=== PATIENT | female | born 1975 | race African-American/Black ===

== ENCOUNTER 2023-11-01 00:25 | Emergency (ER) | payer MEDICAID ==
[~2023-11-01] VITALS: Ht 149.9 cm; Wt 50.3 kg
[2023-11-01 00:39] VITALS: TEMP 97.7
[2023-11-01] MEDS ORDERED: NITROGLYCERIN 0.4 MG/TAB BOTTLE ONE (00:56)
[2023-11-01] MEDS ORDERED: NITROGLYCERIN 0.4 MG/TAB BOTTLE SL ONE ×2 (01:00→04:30)
[2023-11-01 01:50] LABS: BASOPHILS % (AUTO) 0.7 % (0.0-2.0); EOSINOPHILS # (AUTO) 0.1 K/uL (0.0-0.7); EOSINOPHILS % (AUTO) 1.8 % (0.0-6.0); HEMATOCRIT 33 % (33-45); LYMPHOCYTES # (AUTO) 1.1 K/uL (0.8-4.8); LYMPHOCYTES % (AUTO) 16.9 % (20.0-44.0); MEAN CORPUSCULAR HEMOGLOBIN 32 PG (26.0-33.0); MEAN CORPUSCULAR HGB CONC 33 g/dl (31.0-36.0); MEAN CORPUSCULAR VOLUME 97 fL (82-100); MONOCYTES # (AUTO) 0.3 K/uL (0.1-1.30); MONOCYTES % (AUTO) 4.2 % (2.0-12.0); NEUTROPHILS # (AUTO) 5.2 K/uL (1.8-8.9); NEUTROPHILS % (AUTO) 76.4 % (43.0-81.0); PLATELET COUNT (AUTO) 222 K/uL (150-450); RED CELL DISTRIBUTION WIDTH 18.8 % (11.5-15.0); WHITE BLOOD COUNT (AUTO) 6.8 K/uL (4.3-11.0)
[2023-11-01 01:53] LABS: CALCIUM, SERUM 9.5 mg/dL (8.5-10.1); INR 1.08 (0.91-1.10); PARTIAL THROMBOPLASTIN TIME 26.6 SEC (24.3-34.3); PROTHROMBIN TIME 11.4 SECS (9.2-11.1)
[2023-11-01 01:58] LABS: ALBUMIN 3.8 g/dL (3.4-5.0); BILIRUBIN,DIRECT 0.1 mg/dL (0.0-0.2); BILIRUBIN,TOTAL 0.4 mg/dL (0.2-1.0); TOTAL PROTEIN, SERUM 7.6 g/dL (6.4-8.2)
[2023-11-01 02:02] LABS: CREATININE 10.4 mg/dL (0.6-1.3)
[2023-11-01 04:20] VITALS: O2SAT 97
[2023-11-01 04:31] VITALS: BP 163/121
== END 2023-11-01 04:37 | disposition short-term general hospital (02) ==
LOC: ER 00:28
DX: R09.02 Hypoxemia (principal); I13.2 Hypertensive heart and chronic kidney disease with heart failure and with stage 5 chronic kidney disease, or end stage renal disease; N18.6 End stage renal disease; I50.9 Heart failure, unspecified; Z99.2 Dependence on renal dialysis; Z88.8 Allergy status to other drugs, medicaments and biological substances; Z20.822 Contact with and (suspected) exposure to COVID-19
CPT/HCPCS: 36415; 71045-TC; 80048-TC; 80076-TC; 85025-TC; 85730-TC

== ENCOUNTER 2024-03-27 23:22 | Inpatient (IN) | payer MEDICAID ==
[~2024-03-27] VITALS: Ht 144.8 cm; Wt 46.3 kg
[2024-03-27] MEDS ORDERED: NTG 50 MG/D5W250 ML BOTTL 250 ML IV ONE (23:46)
[2024-03-27 23:56] LABS: BASOPHILS # (AUTO) 0.1 K/uL (0.0-0.2); BASOPHILS % (AUTO) 1.2 % (0.0-2.0); EOSINOPHILS # (AUTO) 0.1 K/uL (0.0-0.7); EOSINOPHILS % (AUTO) 2.2 % (0.0-6.0); HEMATOCRIT 35 % (33-45); HEMOGLOBIN 11.4 g/dL (11.5-14.8); LYMPHOCYTES # (AUTO) 2.7 K/uL (0.8-4.8); LYMPHOCYTES % (AUTO) 39.6 % (20.0-44.0); MEAN CORPUSCULAR HEMOGLOBIN 32 PG (26.0-33.0); MEAN CORPUSCULAR HGB CONC 33 g/dl (31.0-36.0); MEAN CORPUSCULAR VOLUME 100 fL (82-100); MONOCYTES # (AUTO) 0.4 K/uL (0.1-1.30); MONOCYTES % (AUTO) 5.6 % (2.0-12.0); NEUTROPHILS # (AUTO) 3.5 K/uL (1.8-8.9); NEUTROPHILS % (AUTO) 51.4 % (43.0-81.0); PLATELET COUNT (AUTO) 140 K/uL (150-450); RED CELL DISTRIBUTION WIDTH 17.2 % (11.5-15.0); WHITE BLOOD COUNT (AUTO) 6.8 K/uL (4.3-11.0)
[2024-03-27] MEDS: NTG 50 MG/D5W250 ML BOTTL 250 ML IV ONE (23:57)
[2024-03-28] VITALS (38 sets, daily range): BP systolic 119–186; BP diastolic 61–121; TEMP 97.3–98; O2SAT 92–100
[2024-03-28 00:05] LABS: CALCIUM, SERUM 10.4 mg/dL (8.5-10.1); CARBON DIOXIDE 26 mmol/L (21-32); CHLORIDE 95 mmol/L (98-107); GLUCOSE 116 mg/dL (74-106); POTASSIUM 4.4 mmol/L (3.5-5.1); SODIUM SERUM 137 mmol/L (136-145); UREA NITROGEN, BLOOD 64 mg/dL (7-18)
[2024-03-28 00:10] LABS: INR 1.05 (0.91-1.10); PARTIAL THROMBOPLASTIN TIME 27.2 SEC (24.3-34.3); PROTHROMBIN TIME 11.1 SECS (9.2-11.1)
[2024-03-28 00:17] LABS: ALANINE AMINOTRANSFERASE 55 U/L (12-78); ALBUMIN 4.1 g/dL (3.4-5.0); ALKALINE PHOSPHATASE 82 U/L (46-116); ASPARTATE AMINOTRANSFERASE 73 U/L (15-37); BILIRUBIN,DIRECT 0.2 mg/dL (0.0-0.2); BILIRUBIN,TOTAL 0.5 mg/dL (0.2-1.0); TOTAL PROTEIN, SERUM 8.1 g/dL (6.4-8.2)
[2024-03-28 00:23] LABS: CREATININE 9.8 mg/dL (0.6-1.3); NT-PRO BNP > 25000 pg/mL (0-125)
[2024-03-28] MEDS ORDERED: ONDANSETRON HCL/PF 4 MG/2 ML VIAL IVP PRN (01:00)
[2024-03-28] MEDS ORDERED: MAG HYDROX/AL HYDROX/SIMETH 30 ML UDC PO PRN (01:00)
[2024-03-28] MEDS ORDERED: MAGNESIUM HYDROXIDE 30 ML UDC PO PRN (01:00)
[2024-03-28 04:56] LABS: BASOPHILS % (AUTO) 0.7 % (0.0-2.0); EOSINOPHILS % (AUTO) 0.3 % (0.0-6.0); HEMATOCRIT 30 % (33-45); HEMOGLOBIN 10.2 g/dL (11.5-14.8); LYMPHOCYTES # (AUTO) 0.8 K/uL (0.8-4.8); LYMPHOCYTES % (AUTO) 13.8 % (20.0-44.0); MEAN CORPUSCULAR HEMOGLOBIN 33 PG (26.0-33.0); MEAN CORPUSCULAR HGB CONC 34 g/dl (31.0-36.0); MEAN CORPUSCULAR VOLUME 99 fL (82-100); MONOCYTES # (AUTO) 0.4 K/uL (0.1-1.30); MONOCYTES % (AUTO) 6.8 % (2.0-12.0); NEUTROPHILS # (AUTO) 4.8 K/uL (1.8-8.9); NEUTROPHILS % (AUTO) 78.4 % (43.0-81.0); PLATELET COUNT (AUTO) 127 K/uL (150-450); RED BLOOD CELL COUNT(AUTO) 3.08 MIL/uL (4.0-5.2); RED CELL DISTRIBUTION WIDTH 17.1 % (11.5-15.0); WHITE BLOOD COUNT (AUTO) 6.1 K/uL (4.3-11.0)
[2024-03-28 05:14] LABS: CALCIUM, SERUM 9.8 mg/dL (8.5-10.1); MAGNESIUM 2.4 mg/dL (1.8-2.4); PHOSPHORUS 7.6 mg/dL (2.5-4.9)
[2024-03-28 05:24] LABS: CREATININE 10.3 mg/dL (0.6-1.3)
[2024-03-28] MEDS ORDERED: LOSA25TA27 PO ×2 (08:08→10:24)
[2024-03-28] MEDS ORDERED: BISO10TA PO (08:08)
[2024-03-28] MEDS ORDERED: LIDO30CR TP (08:08)
[2024-03-28] MEDS ORDERED: SODI650T PO (08:08)
[2024-03-28] MEDS ORDERED: FURO-144 PO (08:08)
[2024-03-28] MEDS ORDERED: CALC0.253 PO (08:08)
[2024-03-28] MEDS ORDERED: NIFE-35 PO (08:08)
[2024-03-28] MEDS ORDERED: SEVE800T8 PO (08:08)
[2024-03-28] MEDS ORDERED: NIFEDIPINE XL 60 MG TAB.ER.24 PO SCH (09:00)
[2024-03-28] MEDS: HEPARIN SODIUM, PORCINE 5000 UNITS/1 ML VIAL SQ SCH (09:36)
[2024-03-28] MEDS: ACETAMINOPHEN 325 MG TABLET PO PRN (10:22)
[2024-03-28] MEDS: NIFEdipine XL (30MG) 30 MG TAB PO SCH (10:32)
[2024-03-28] MEDS: LOSARTAN POTASSIUM 50 MG TABLET PO SCH (11:16)
[2024-03-28] MEDS: hydrALAZINE HCL IV 20 MG VIAL IV PRN (12:17)
[2024-03-29 15:09] LABS: HEPATITIS B SURFACE AB Non Reactive (.)
== END 2024-03-28 16:24 | disposition home or self-care (01) | DRG 425 ==
LOC: ER 23:25 → ICU 03-28 00:30
PROVIDERS: ADMIT Nurse Practitioner Acute Care; ATTEND Internal Medicine
PROC: 5A09357 Assistance with Respiratory Ventilation, Less than 24 Consecutive Hours, Continuous Positive Airway Pressure (ICD-10-PCS; principal; 2024-03-28)
PROC: 5A1D70Z Performance of Urinary Filtration, Intermittent, Less than 6 Hours Per Day (ICD-10-PCS; 2024-03-28)
DX: E87.79 Other fluid overload (principal); J96.01 Acute respiratory failure with hypoxia; I21.A1 Myocardial infarction type 2; D68.69 Other thrombophilia; I12.0 Hypertensive chronic kidney disease with stage 5 chronic kidney disease or end stage renal disease; N18.6 End stage renal disease; D63.1 Anemia in chronic kidney disease; I16.9 Hypertensive crisis, unspecified; E66.9 Obesity, unspecified; Z68.22 Body mass index [BMI] 22.0-22.9, adult; N25.0 Renal osteodystrophy; Z99.2 Dependence on renal dialysis; I12.9 Hypertensive chronic kidney disease with stage 1 through stage 4 chronic kidney disease, or unspecified chronic kidney disease
CPT/HCPCS: 36415; 71045-TC; 80048-TC; 80076-TC; 83735-TC; 83880; 84100-TC; 84484-TC; 85025-TC; 85730-TC; 86706; 87081-TC; 87340; 90935-TC; A4223; G0378; J0360; J1644; J3490

== ENCOUNTER 2024-07-26 22:11 | Inpatient (IN) | payer MEDICARE, MEDICAID ==
[~2024-07-26] VITALS: Ht 149.9 cm; Wt 42.2 kg
[~2024-07-26 22:11] MED LIST: BISO10TA PO; CALC0.253 PO; FURO-144 PO; LIDO30CR TP; LOSA25TA27 PO; NIFE-35 PO; SEVE800T8 PO; SODI650T PO
[2024-07-26] MEDS ORDERED: FUROSEMIDE 40 MG/4 ML VIAL ONE (22:24)
[2024-07-26] MEDS: FUROSEMIDE 40 MG/4 ML VIAL IV ONE (22:28)
[2024-07-26 22:31] LABS: BASOPHILS # (AUTO) 0.1 K/uL (0.0-0.2); BASOPHILS % (AUTO) 0.7 % (0.0-2.0); EOSINOPHILS # (AUTO) 0.1 K/uL (0.0-0.7); EOSINOPHILS % (AUTO) 1.5 % (0.0-6.0); HEMATOCRIT 34 % (33-45); HEMOGLOBIN 10.9 g/dL (11.5-14.8); LYMPHOCYTES # (AUTO) 4.1 K/uL (0.8-4.8); LYMPHOCYTES % (AUTO) 54.3 % (20.0-44.0); MEAN CORPUSCULAR HEMOGLOBIN 32 PG (26.0-33.0); MEAN CORPUSCULAR HGB CONC 32 g/dl (31.0-36.0); MEAN CORPUSCULAR VOLUME 98 fL (82-100); MONOCYTES # (AUTO) 0.5 K/uL (0.1-1.30); MONOCYTES % (AUTO) 6.2 % (2.0-12.0); NEUTROPHILS # (AUTO) 2.8 K/uL (1.8-8.9); NEUTROPHILS % (AUTO) 37.3 % (43.0-81.0); PLATELET COUNT (AUTO) 136 K/uL (150-450); RED BLOOD CELL COUNT(AUTO) 3.45 MIL/uL (4.0-5.2); RED CELL DISTRIBUTION WIDTH 17.3 % (11.5-15.0); WHITE BLOOD COUNT (AUTO) 7.6 K/uL (4.3-11.0)
[2024-07-26 22:47] LABS: CALCIUM, SERUM 9.6 mg/dL (8.5-10.1); CARBON DIOXIDE 27 mmol/L (21-32); CHLORIDE 103 mmol/L (98-107); GLUCOSE 144 mg/dL (74-106); POTASSIUM 5.4 mmol/L (3.5-5.1); SODIUM SERUM 143 mmol/L (136-145); UREA NITROGEN, BLOOD 58 mg/dL (7-18)
[2024-07-26 23:01] LABS: ALANINE AMINOTRANSFERASE 82 U/L (12-78); ALBUMIN 4.2 g/dL (3.4-5.0); ALKALINE PHOSPHATASE 99 U/L (46-116); ASPARTATE AMINOTRANSFERASE 93 U/L (15-37); BILIRUBIN,DIRECT 0.1 mg/dL (0.0-0.2); BILIRUBIN,TOTAL 0.4 mg/dL (0.2-1.0); NT-PRO BNP > 25000 pg/mL (0-125); TOTAL PROTEIN, SERUM 7.8 g/dL (6.4-8.2)
[2024-07-26 23:06] LABS: CREATININE 8.6 mg/dL (0.6-1.3)
[2024-07-26 23:25] LABS: ANISOCYTOSIS 1+; BASOPHILS % (MANUAL) 0 % (0.0-2.0); EOSINOPHILS % (MANUAL) 1 % (0-4); LYMPHOCYTES % (MANUAL) 48 % (16-48); MONOCYTES % (MANUAL) 10 % (0-11.0); NEUTROPHILS % (MANUAL) 41 (42-76); PLATELET ESTIMATE DECREASED
[2024-07-26] MEDS ORDERED: hydrALAZINE HCL IV 20 MG VIAL ONE (23:39)
[2024-07-26 23:53] LABS: ABG BASE EXCESS -4.5 mmol/L (-2.0-3.0); ABG OXYGEN SATURATION 97.9 % (94.0-98.0); ABG PCO2 40.8 mmHg (32.0-45.0); ABG PH 7.332 (7.350-7.450); ABG PO2 121.6 mmHg (83.0-108.0); ABG TOTAL HEMOGLOBIN 11.5 G/dL (12.0-16.0); COHb 0.3 % (0.5-1.5); MetHb 0.2 % (0.0-1.5); O2Hb 97.4 % (94.0-97.0); SITE, ABG LEFT RADIAL
[2024-07-26] MEDS: hydrALAZINE HCL IV 20 MG VIAL IV ONE (23:53)
[2024-07-27] VITALS (60 sets, daily range): BP systolic 126–202; BP diastolic 88–140; TEMP 97.5–99; O2SAT 92–100
[2024-07-27] MEDS ORDERED: hydrALAZINE HCL IV 20 MG VIAL IV ONE
[2024-07-27] MEDS ORDERED: MAG HYDROX/AL HYDROX/SIMETH 30 ML UDC PO PRN (00:30)
[2024-07-27] MEDS ORDERED: ONDANSETRON HCL/PF 4 MG/2 ML VIAL IVP PRN (00:30)
[2024-07-27] MEDS ORDERED: Z GUARD REMEDY 4 OZ OINT TP PRN (00:30)
[2024-07-27] MEDS ORDERED: MAGNESIUM HYDROXIDE 30 ML UDC PO PRN (00:30)
[2024-07-27] MEDS: hydrALAZINE HCL IV 20 MG VIAL IV PRN (01:37)
[2024-07-27] MEDS: SEVELAMER CARBONATE 800 MG TABLET PO SCH (08:00)
[2024-07-27] MEDS ORDERED: NIFE-34 PO (08:02)
[2024-07-27] MEDS ORDERED: NIFEdipine XL (30MG) 30 MG TAB PO SCH (09:00)
[2024-07-27] MEDS: PANTOPRAZOLE 40 MG VIAL IV SCH (09:18)
[2024-07-27] MEDS: SODIUM BICARBONATE 650 MG TABLET PO SCH (09:18)
[2024-07-27] MEDS: LOSARTAN POTASSIUM 25 MG TABLET PO SCH (09:19)
[2024-07-27] MEDS: FUROSEMIDE 40 MG/4 ML VIAL IV SCH (09:19)
[2024-07-27] MEDS: HEPARIN SODIUM, PORCINE 5000 UNITS/1 ML VIAL SQ SCH (09:21)
[2024-07-27] MEDS ORDERED: NIFEDIPINE XL 60 MG TAB.ER.24 PO SCH (09:30)
[2024-07-27] MEDS: ATENOLOL 50 MG TABLET PO SCH (09:39)
[2024-07-27] MEDS: CALCITRIOL 0.25 MCG CAPSULE PO SCH (10:24)
[2024-07-27] MEDS: ACETAMINOPHEN 325 MG TABLET PO PRN (17:02)
[2024-07-27] MEDS ORDERED: NIFEDIPINE XL 60 MG TAB.ER.24 PO ONE (19:00)
[2024-07-27] MEDS ORDERED: NIFEdipine XL (30MG) 30 MG TAB PO ONE (19:00)
[2024-07-27] MEDS: NIFEdipine XL (30MG) 30 MG TAB PO ONE (19:31)
[2024-07-27] MEDS: CLONIDINE HCL 0.1 MG TABLET PO PRN (21:31)
[2024-07-28] VITALS (15 sets, daily range): BP systolic 126–159; BP diastolic 86–115; TEMP 98.3–99.1; O2SAT 91–100
[2024-07-28 04:39] LABS: BASOPHILS % (AUTO) 0.6 % (0.0-2.0); HEMATOCRIT 27 % (33-45); HEMOGLOBIN 9.2 g/dL (11.5-14.8); LYMPHOCYTES # (AUTO) 1.1 K/uL (0.8-4.8); LYMPHOCYTES % (AUTO) 22.2 % (20.0-44.0); MEAN CORPUSCULAR HEMOGLOBIN 32 PG (26.0-33.0); MEAN CORPUSCULAR HGB CONC 34 g/dl (31.0-36.0); MEAN CORPUSCULAR VOLUME 95 fL (82-100); MONOCYTES # (AUTO) 0.4 K/uL (0.1-1.30); MONOCYTES % (AUTO) 7.8 % (2.0-12.0); NEUTROPHILS # (AUTO) 3.4 K/uL (1.8-8.9); NEUTROPHILS % (AUTO) 68.4 % (43.0-81.0); PLATELET COUNT (AUTO) 95 K/uL (150-450); RED BLOOD CELL COUNT(AUTO) 2.87 MIL/uL (4.0-5.2); RED CELL DISTRIBUTION WIDTH 16.8 % (11.5-15.0); WHITE BLOOD COUNT (AUTO) 4.9 K/uL (4.3-11.0)
[2024-07-28 04:55] LABS: CALCIUM, SERUM 9.6 mg/dL (8.5-10.1); CREATININE 6.9 mg/dL (0.6-1.3); MAGNESIUM 2.4 mg/dL (1.8-2.4); POTASSIUM 4.6 mmol/L (3.5-5.1)
[2024-07-28 05:46] LABS: PLATELET ESTIMATE DECREASED
[2024-07-28] MEDS: NIFEdipine XL (30MG) 30 MG TAB PO SCH (08:32)
[2024-07-29] MEDS ORDERED: PANTOPRAZOLE 40 MG TABLET.DR PO SCH (09:00)
== END 2024-07-28 14:02 | disposition home or self-care (01) | DRG 291 ==
LOC: ER 22:13 → ICU 07-27 00:01
PROVIDERS: ATTEND Student in an Organized Health Care Education/Training Program
PROC: 5A09357 Assistance with Respiratory Ventilation, Less than 24 Consecutive Hours, Continuous Positive Airway Pressure (ICD-10-PCS; principal; 2024-07-27)
PROC: 5A1D70Z Performance of Urinary Filtration, Intermittent, Less than 6 Hours Per Day (ICD-10-PCS; 2024-07-27)
DX: I13.2 Hypertensive heart and chronic kidney disease with heart failure and with stage 5 chronic kidney disease, or end stage renal disease (principal); I50.33 Acute on chronic diastolic (congestive) heart failure; J96.01 Acute respiratory failure with hypoxia; N18.6 End stage renal disease; C90.01 Multiple myeloma in remission; D69.6 Thrombocytopenia, unspecified; E87.5 Hyperkalemia; I16.0 Hypertensive urgency; Z79.899 Other long term (current) drug therapy; Z99.2 Dependence on renal dialysis; D63.8 Anemia in other chronic diseases classified elsewhere; Z20.822 Contact with and (suspected) exposure to COVID-19
CPT/HCPCS: 36415; 36600; 71045-TC; 80048-TC; 80076-TC; 82803-TC; 83735-TC; 83880; 84100-TC; 84484-TC; 85025-TC; 87081-TC; 90935-TC; 93307-TC; 94799-TC; 99082-TC; G0378; J0360; J1644; J1940; J2470